=== PATIENT | male | born 1980 | race Caucasian/White ===

== ENCOUNTER 2018-12-31 10:02 | Emergency (ER) | payer MEDICAID ==
[~2018-12-31] VITALS: Ht 167.6 cm; Wt 80.0 kg
[2018-12-31 12:53] VITALS: BP 141/78
== END 2018-12-31 13:02 | disposition home or self-care (01) ==
LOC: ER 10:02
DX: M54.5 Low back pain (principal)
CPT/HCPCS: 99283